=== PATIENT | male | born 1965 | race African-American/Black ===

== ENCOUNTER 2017-07-24 17:59 | Emergency (ER) | payer OTHER ==
[~2017-07-24] VITALS: Ht 182.9 cm; Wt 204.1 kg
[2017-07-24 18:08] VITALS: BP 138/84
[2017-07-24] MEDS ORDERED: Tetracaine 0.5% Opth 4ml Soln ONE (18:44)
[2017-07-24] MEDS ORDERED: Tetracaine 0.5% Opth 4ml Soln LEFT EYE ONE (18:45)
[2017-07-24 19:18] VITALS: BP 132/80
--- NOTE | 2017-07-24 19:27 | Emergency Room Report ---
History of Present Illness General Chief Complaint: Eye Problems Source: Patient Present Illness HPI Patient is a 52-year-old male who presents today with complaints of difficulty seeing out of the left eye. Patient states he accidentally put contact us a cleaning solution in his left eye 3 days ago. He states he initially. The left eye copiously and since that time he has been having some difficulty seeing out of the left eye. Patient does not wear contacts. He is prescribed eyeglasses but does not wear them. Pt adamantly denies pain or foreign body sensation. Allergies: Coded Allergies: MORPHINE (Verified Allergy, Severe, 07/24/17) PENICILLINS (Verified Allergy, Severe, Hives, 07/24/17) Patient History Reviewed Nursing Documentation: PMH: Agreed, PSxH: Agreed Nursing Documentation-PMH Past Medical History: No History, Except For Hx Cardiac Problems: Yes - chf, aflutter Hx Diabetes: Yes - borderline Review of Systems Eye: Reports: blurred vision All Other Systems: negative except mentioned in HPI Physical Exam Vital Signs Date Time Temp Pulse Resp B/P (MAP) Pulse Ox O2 Delivery O2 Flow Rate FiO2 07/24/17 18:08 99.1 96 22 138/84 96 Room Air Sp02 EP Interpretation: reviewed, normal General Appearance: no apparent distress, alert, GCS 15, non-toxic Head: normocephalic, atraumatic Eyes: bilateral eye normal inspection, bilateral eye PERRL, bilateral eye EOMI ENT: hearing grossly normal, normal pharynx, no angioedema, normal voice Neck: full range of motion, supple/symm/no masses Respiratory: chest non-tender, lungs clear, normal breath sounds, speaking full sentences Cardiovascular #1: regular rate, rhythm, no edema Cardiovascular #2: 2+ carotid (R), 2+ carotid (L), 2+ radial (R), 2+ radial (L) , 2+ dorsalis pedis (R), 2+ dorsalis pedis (L) Gastrointestinal: normal bowel sounds, non tender, soft, non-distended, no guarding, no rebound Rectal: deferred Genitourinary: normal inspection, no CVA tenderness Musculoskeletal: back normal, gait/station normal, normal range of motion, non- tender, calf tenderness Neurologic: alert, oriented x3, responsive, motor strength/tone normal, sensory intact, speech normal Psychiatric: judgement/insight normal, memory normal, mood/affect normal, no suicidal/homicidal ideation Reflexes: 3+ bicep (R), 3+ bicep (L), 3+ tricep (R), 3+ tricep (L), 3+ knee (R) , 3+ knee (L) Skin: normal color, no rash, warm/dry, well hydrated Lymphatic: no adenopathy Medical Decision Making PA Attestation Supervising physician is Dr. Otero Diagnostic Impression: Primary Impression: Chemical burn of eye ER Course Left side is copiously irrigated. No need for fluorescein stain as patient adamantly denies pain or foreign body sensation. Discussed case with Dr. Otero who agrees with treatment and disposition. Patient states he is feeling better after the irrigation. He is discharged home with instructions to followup with ophthalmology tomorrow for reevaluation. Patient understands and is agreeable with plan. Reevaluation Time: 19:26 Last Vital Signs Date Time Temp Pulse Resp B/P (MAP) Pulse Ox O2 Delivery O2 Flow Rate FiO2 07/24/17 18:08 99.1 103 22 138/84 96 Room Air Status: improved Disposition: HOME, SELF-CARE Condition: Stable Referrals: TERESA OLGUIN PLN,REFERRI (PCP) Patient Instructions: Chemical Conjunctivitis, [id number] Regi Colin Jul 24, 2017 19:27
[2017-07-24 19:33] VITALS: BP 132/80
== END 2017-07-24 19:35 | disposition home or self-care (01) ==
LOC: EMR 18:41
DX: T65.891A Toxic effect of other specified substances, accidental (unintentional), initial encounter (principal); T26.92XA Corrosion of left eye and adnexa, part unspecified, initial encounter; Y92.89 Other specified places as the place of occurrence of the external cause; Z88.0 Allergy status to penicillin
CPT/HCPCS: 99283

== ENCOUNTER 2017-09-16 18:04 | Emergency (ER) | payer OTHER ==
[~2017-09-16] VITALS: Ht 182.9 cm; Wt 204.1 kg
[2017-09-16 18:56] VITALS: BP 135/86
[2017-09-16 19:13] LABS: PROTHROMBIN TIME 10.5 SEC (9.30-11.50)
[2017-09-16 19:26] LABS: ANION GAP 5 mmol/L (5-15); CALCIUM 8.8 MG/DL (8.5-10.1); CARBON DIOXIDE 33 MMOL/L (21-32); CHLORIDE 100 MMOL/L (98-107); CREATININE 1.4 MG/DL (0.55-1.30); GLOMERULAR FILTRATION RATE > 60 mL/min (>60); POTASSIUM 4.1 MMOL/L (3.5-5.1); SODIUM 138 MMOL/L (136-145)
[2017-09-16 19:36] LABS: ALANINE AMINOTRANSFERASE 17 U/L (12-78); ALBUMIN/GLOBULIN RATIO 0.6 (1.0-2.7); ASPARTATE AMINO TRANSFERASE 21 U/L (15-37); TOTAL PROTEIN 8.7 G/DL (6.4-8.2)
[2017-09-16] MEDS ORDERED: FUROSEMIDE40 MG ORAL (21:04)
[2017-09-16] MEDS ORDERED: KEFLEX500 MG ORAL (21:04)
[2017-09-16 21:20] VITALS: BP 122/70
--- NOTE | 2017-09-16 22:47 | Emergency Room Report ---
History of Present Illness General Chief Complaint: Pain Source: Patient Present Illness HPI Patient is a 52-year-old male presented after increased left leg discomfort. The patient gradual onset of symptoms. The patient was having had prior negative DVT ultrasound. He states he has prior history of congestive heart failure and atrial flutter. He reports taking Coumadin for anticoagulation. He had reported increased swelling and redness to his left leg. He reports having prior history of upper circulation to his lower extremities as well as varicose veins. He states he has not taken his medications today. He states he began having increased symptoms after helping his mother move. Allergies: Coded Allergies: MORPHINE (Verified Allergy, Severe, 07/24/17) PENICILLINS (Verified Allergy, Severe, Hives, 07/24/17) Patient History Past Medical History: see triage record, HTN, CHF, arrhyth Reviewed Nursing Documentation: PMH: Agreed, PSxH: Agreed Nursing Documentation-PMH Past Medical History: No History, Except For Hx Cardiac Problems: Yes - chf, aflutter Hx Diabetes: Yes - borderline Review of Systems All Other Systems: negative except mentioned in HPI Physical Exam Vital Signs Date Time Temp Pulse Resp B/P (MAP) Pulse Ox O2 Delivery O2 Flow Rate FiO2 09/16/17 18:08 98.2 133 24 109/64 96 Room Air Sp02 EP Interpretation: reviewed, normal General Appearance: normal inspection, alert, GCS 15, Chronically Ill Head: atraumatic Eyes: bilateral eye PERRL ENT: normal ENT inspection, hearing grossly normal, normal voice, uvula midline Neck: normal inspection, full range of motion, supple, no bony tend Respiratory: normal inspection, no respiratory distress, no retraction, no wheezing, other - decreased lung sound Cardiovascular #1: no edema, tachycardia Gastrointestinal: normal inspection, normal bowel sounds, non tender, soft, no guarding, no hernia Genitourinary: no CVA tenderness Musculoskeletal: normal inspection, back normal, normal range of motion Neurologic: normal inspection, alert, oriented x3, responsive, 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 Differential diagnosis included was not limited to cellulitis, venous stasis, deep venous thrombosis, necrotizing fasciitis among others.Because of complexity of patient's case laboratory testing and imaging studies were ordered. EKG interpreted by me showed atrial flutter with a rate of [address] or T wave changes. The patient was noted to have had taken his Coreg while in emergency department. Patient was given IV Lasix. Laboratory studies showed evidence of elevated BNP with normal white blood count. Patient was observed in the emergency department. The patient was noted to have persistent tachycardia. Patient was advised that he required further inpatient management and treatment of tachycardia. The patient declined further stabilizing measures including a rate controlled medications. The patient was advised risk benefits alternatives of leaving AGAINST MEDICAL ADVICE and he indicated understanding and all questions are answered patient still continued want to leave and signed AGAINST MEDICAL ADVICE. Despite risks including but not limited to disability and worsening of current lifestyle. The patient is awake alert and oriented and capable of self-care. Patient states that he does not want to be admitted and wants to leave AGAINST MEDICAL ADVICE despite risks of worsening condition heart attacks or loss of current lifestyle. The patient left AMA with significant other. The patient was given prescription for Lasix and Keflex. He is advised to return at anytime Labs Test 09/16/17 18:46 Prothrombin Time 10.5 SEC (9.30-11.50) Prothromb Time International Ratio 1.0 (0.9-1.1) Activated Partial Thromboplast Time 28 SEC (23-33) Sodium Level 138 MMOL/L (136-145) Potassium Level 4.1 MMOL/L (3.5-5.1) Chloride Level 100 MMOL/L (98-107) Carbon Dioxide Level 33 MMOL/L (21-32) Anion Gap 5 mmol/L (5-15) Blood Urea Nitrogen 18 mg/dL (7-18) Creatinine 1.4 MG/DL (0.55-1.30) Estimat Glomerular Filtration Rate > 60 mL/min (>60) Glucose Level 120 MG/DL (74-106) Calcium Level 8.8 MG/DL (8.5-10.1) Total Bilirubin 0.3 MG/DL (0.2-1.0) Aspartate Amino Transf (AST/SGOT) 21 U/L (15-37) Alanine Aminotransferase (ALT/SGPT) 17 U/L (12-78) Alkaline Phosphatase 73 U/L (46-116) Troponin I 0.000 ng/mL (0.000-0.056) Pro-B-Type Natriuretic Peptide 539 pg/mL (0-125) Total Protein 8.7 G/DL (6.4-8.2) Albumin 3.1 G/DL (3.4-5.0) Globulin 5.6 g/dL Albumin/Globulin Ratio 0.6 (1.0-2.7) EKG Diagnostic Results Rate: tachycardiac Rhythm: other - atrial flutter ASA given to the pt in ED: No Rhythm Strip Diag. Results EP Interpretation: yes Rhythm: no PVC's, no ectopy, other - atrial flutter Last Vital Signs Date Time Temp Pulse Resp B/P (MAP) Pulse Ox O2 Delivery O2 Flow Rate FiO2 09/16/17 18:56 98.1 110 20 135/86 97 Room Air Status: improved Disposition: AGAINST MEDICAL ADVICE Condition: Serious Scripts Furosemide* (LASIX*) 40 Mg Tablet 40 MG ORAL DAILY, #30 TAB Prov: Rey Gates 09/16/17 Cephalexin* (KEFLEX*) 500 Mg Capsule 500 MG ORAL Q6H, #28 CAP 0 Refills Prov: Rey Gates 09/16/17 Patient Instructions: Edema, Atrial Flutter Rey Gates Sep 16, 2017 22:47
--- NOTE | 2017-09-22 11:04 | Cardiology Report ---
APPROVED REPORT EKG Measurement Heart [id number] 152P [id number] Sinus tachycardia Indeterminate axis Right bundle branch block Abnormal ECG
== END 2017-09-16 21:20 | disposition left against medical advice (07) ==
LOC: EMR 18:58
DX: R60.0 Localized edema (principal); E66.01 Morbid (severe) obesity due to excess calories; Z68.44 Body mass index [BMI] 60.0-69.9, adult; I48.92 Unspecified atrial flutter; I50.9 Heart failure, unspecified; Z79.01 Long term (current) use of anticoagulants; Z88.0 Allergy status to penicillin; Z88.6 Allergy status to analgesic agent
CPT/HCPCS: 36415; 80053; 83880; 84484; 85610; 85730; 93005; 96374; 99284; J1940